=== PATIENT | female | born 1970 | race Hispanic/Latino ===

== ENCOUNTER → 2019-10-08 | Outpatient (CLI) | payer OTHER, MEDICARE ==
[~2019-10-08] MED LIST: ACET-2743 PO; BUPR150SR PO; IBUP-2077 PO; LITH450T16 PO
== END | disposition home or self-care (01) ==
LOC: RAH 07:38
PROVIDERS: ATTEND Family Medicine
DX: Z12.31 Encounter for screening mammogram for malignant neoplasm of breast (principal)
CPT/HCPCS: 77067

== ENCOUNTER 2025-02-25 12:36 | Emergency (ER) | payer OTHER, MEDICARE ==
[~2025-02-25] VITALS: Ht 160 cm; Wt 92.5 kg
[~2025-02-25 12:36] MED LIST changes: +BUPR-72 PO; -BUPR150SR PO; -LITH450T16 PO; +[UNRECOGNIZED DRUG - CODE] PO
--- NOTE | 2025-02-25 12:46 | ERN ---
ED Note History of Present Illness Stated Complaint: MID BACK PAIN Chief Complaint: Back Pain-No Injury Time Seen by MD: 12:40 Dictation: PATIENT IS A 55-YEAR-OLD FEMALE COMING IN TODAY WITH LUMBOSACRAL PAIN TENDERNESS ONSET FRIDAY. SHE STATES SHE WOULD NOT HAVING ANY FALLS NO LIFTING NO RADICULAR PAIN. NO CHANGE IN BOWEL OR BLADDER FUNCTION NO FEVER NO CHILLS NO NAUSEA VOMITING. SHE STATES SHE WAS GOING TO THE DOCTOR'S OFFICE ON FRIDAY WHEN SHE TRIPPED AND FELL ON HER BUTT. STATES SHE SAW HER PRIMARY CARE DOCTOR WHO GAVE HER NAPROXEN AND TOLD HER SHE WOULD DO AN ULTRASOUND OF HER BACK TO RULE OUT A KIDNEY STONE. PATIENT DENIES ANY PAST BACK SURGERIES INJURIES NO RADICULOPATHY OR SCIATICA. SHE HAS NOT TAKEN ANYTHING PRIOR TO ARRIVAL FOR PAIN. Allergies: Coded Allergies: ziprasidone (Unverified Allergy, Severe, RASH, TONGUE SWELLS, 06/13/15) lamotrigine (Unverified Allergy, Mild, RASH SWELLING, 06/13/15) Home Meds Reported Medications Ibuprofen (Ibuprofen 800 mg Tab) 800 Mg Tab, 800 MG PO AD PRN for PAIN, TAB 06/13/15 Acetaminophen (Tylenol Extra Strength) 500 Mg Tablet, 500 MG PO AD, TAB 06/13/15 Bupropion HCl (Wellbutrin Sr) 150 Mg Srtab, 150 MG PO AM, TAB.SR 06/13/15 [place] Carbonate ([place] Carbonate) 450 Mg Tablet.er, 450 MG PO BID, TAB 06/13/15 Past Medical History RN Note Reviewed/Agreed w/PFSH: Yes Review of System Dictation CONSTITUTIONAL: NEGATIVE EXCEPT FOR HPI HEAD/FACE: NEGATIVE EXCEPT FOR HPI EENT: NEGATIVE EXCEPT FOR HPI RESPIRATORY: NEGATIVE EXCEPT FOR HPI GASTROINTESTINAL/ABDOMINAL: NEGATIVE EXCEPT FOR HPI GENITOURINARY: NEGATIVE EXCEPT FOR HPI MUSCULOSKELETAL: NEGATIVE EXCEPT FOR HPI LUMBOSACRAL PAIN INTEGUMENTARY: NEGATIVE EXCEPT FOR HPI NEUROLOGICAL/PSYCH: NEGATIVE EXCEPT FOR HPI HEMATOLOGIC/LYMPHATIC: NEGATIVE EXCEPT FOR HPI ALL SYSTEMS NEGATIVE, EXCEPT NOTED ABOVE. 13 POINT REVIEW OF SYSTEMS ASSESSED AND ALL NEGATIVE EXCEPT FOR ABOVE. Initial Vital Sign VS Vital Signs Date Time Temp Pulse Resp B/P (MAP) Pulse Ox O2 Delivery O2 Flow Rate FiO2 02/25/25 12:51 96.8 78 19 138/83 99 Room Air 0 02/25/25 13:03 21 Physical Exam Dictation VITAL SIGNS REVIEWED GENERAL APPEARANCE: ALERT, ORIENTED X 3, MODERATE ACUTE DISTRESS, WELL DEVELOPED, NOURISHED. OBESE HEAD AND FACE: NON-TRAUMATIC. EYES: PERRL, PINK CONJUNCTIVAS, EYELID NO TRAUMA, ANTERIOR CHAMBER WITH ARCUS SENILIS. EARS: PINNAS INTACT AND NO SIGNS OF TRAUMA OR ERYTHEMA EAR CANALS CLEAR AND NO DISCHARGE TM NO ERYTHEMA NOSE: NO DISCHARGE, NO BLEEDING. OROPHARYNX: MOUTH NORMAL, TONGUE PINK, PHARYNX CLEAR,NO ERYTHEMA, TONSILS NO EXUDATES, NO ABSCESSES NOTED, MUCOUS MEMBRANE MOIST NECK: SUPPLE, NON-TENDER, NO THYROMEGALY, NO MASSES, NO JVD, NO BRUITS BREAST:DEFERRED CHEST:NO TENDERNESS, NO CREPITUS, NO PARADOXICAL MOVEMENT, NO RETRACTIONS LUNGS:CLEAR, WELL-VENTILATED, SYMMETRIC, NO RALES, NO WHEEZING, NO RHONCHI, NO STRIDOR, GOOD BREATH SOUNDS BILATERALLY HEART: REGULAR RATE, REGULAR RHYTHM, NO MURMUR, NO GALLOPS VASCULAR: NO PERIPHERAL EDEMA, ABDOMEN: SOFT, POSITIVE BOWEL SOUNDS, NONDISTENDED, NO GUARDING, NONTENDER, NO REBOUND, NO MASSES NO HEPATOMEGALY, NO SPLENOMEGALY, NO OLIVEIRA'S SIGN, NO HERNIAS. RECTAL: DEFERRED GENITAL: DEFERRED NEUROLOGICAL: NORMAL SPEECH, MOTOR FUNCTION INTACT, SENSORY FUNCTION INTACT MUSCULOSKELETAL: NECK NONTENDER, FULL RANGE OF MOTION, LEFT LATERAL LUMBOSACRAL TENDERNESS WITH PALPATION NO MIDLINE SPINE PAIN DECREASED RANGE OF MOTION SECONDARY TO PAIN NEGATIVE STRAIGHT LEG RAISE BILATERALLY 10 DEGREE EXTREMITIES: NONTENDER, FULL RANGE OF MOTION SKIN: COLOR PINK, DRY, NO TURGOR, NO RASH, NO LACERATIONS, NO ABRASIONS, NO CONTUSIONS. LYMPHATIC: DEFERRED Results (Laboratory/Radiology) Laboratory/Radiology Laboratory Tests Test 02/25/25 13:22 Urine Color COLORLESS (YELLOW) Urine Appearance CLEAR (CLEAR) Urine pH 6.0 (5.0-8.0) Urine Specific [place] 1.006 (1.001-1.031) Urine Protein NEGATIVE mg/dL (NEGATIVE) Urine Glucose (UA) NEGATIVE mg/dL (NEGATIVE) Urine Ketones NEGATIVE mg/dL (NEGATIVE) Urine Occult Blood NEGATIVE (NEGATIVE) Urine Nitrate NEGATIVE (NEGATIVE) Urine Bilirubin NEGATIVE mg/dL (NEGATIVE) Urine Urobilinogen 0.2 mg/dL (0.2-1.0) Urine Leukocyte Esterase NEGATIVE Sosa/uL 1415/LUMBAR X-RAY NEGATIVE OTHER THAN DJD Labs Reviewed?: Yes ED Course ED Course Orders Procedure Category Date Status Time Urinalysis Profile LAB 02/25/25 Complete 12:44 Cyclobenzaprine Hcl PHA 02/25/25 Complete (Cyclobenzaprine Hcl 13:00 Ketorolac 60mg/2ml PHA 02/25/25 Complete (Toradol 60mg/2ml) 13:00 Lumbar Spine 2-3vws RAD 02/25/25 Taken 12:44 Current Medications Medications (Trade) Dose Ordered Sig/Solange Route PRN Reason Start Time Stop Time Status Last Admin Dose Admin Cyclobenzaprine HCl (Cyclobenzaprine HCl) 10 mg ONCE ONCE PO 02/25/25 13:00 02/25/25 13:01 DC 02/25/25 13:10 Ketorolac Tromethamine (toRADol 60MG/ 2ML) 60 mg ONCE ONCE IM 02/25/25 13:00 02/25/25 13:01 DC 02/25/25 13:11 Vital Signs Date Time Temp Pulse Resp B/P (MAP) Pulse Ox O2 Delivery O2 Flow Rate FiO2 02/25/25 13:03 98.1 75 16 135/82 98 Room Air* 0 21 02/25/25 12:51 96.8 78 19 138/83 99 Room Air 0 1417/PATIENT STATES PAIN IS IMPROVING WITH TREATMENT. WE WILL BE DISCHARGED HOME WITH CYCLOBENZAPRINE AND IBUPROFEN GIVEN INSTRUCTIONS TO FOLLOW UP WITH HER PRIMARY CARE DOCTOR IN THE NEXT 1-2 DAYS. Medical Decision Making MDM MEDICAL DISCHARGE MAKING BASED ON URINALYSIS TO RULE OUT GENITOURINARY ETIOLOGY FOR PAIN NO HEMATOMA NO INFECTION LUMBOSACRAL X-RAY DEMONSTRATES DJD PATIENT DISCHARGED HOME WITH A ACUTE LUMBOSACRAL STRAIN AND DJD GIVEN IBUPROFEN AND FLEXERIL TOLD SEE HER PRIMARY CARE DOCTOR ON FRIDAY DX & DISP Disposition: Discharge Departure Impression: Primary Impression: Acute lumbosacral myofascial strain Additional Impression: DJD (degenerative joint disease), lumbar Condition: Stable Scripts Cyclobenzaprine HCl (Cyclobenzaprine HCl) 10 Mg Tablet 1 TAB PO TID for muscle spasms for 10 Days, #30 TAB 0 Refills Prov: LIN DUNCAN [facility] 02/25/25 Ibuprofen (Ibuprofen 800 mg Tab) 800 Mg Tab 800 MG PO Q8H PRN for fever or pain, #30 TAB 0 Refills Prov: LIN DUNCAN NP 02/25/25 Additional Instructions: FOLLOW-UP WITH PRIMARY CARE PROVIDER IN 1 TO 2 DAYS. TAKE MEDICATIONS DIRECTED HERE IN THE EMERGENCY ROOM. OKAY TO CONTINUE HOME MEDICATIONS UNLESS OTHERWISE DISCUSSED DURING YOUR VISIT IN THE EMERGENCY ROOM TODAY. RETURN TO YOUR NEAREST EMERGENCY ROOM IF SYMPTOMS WORSEN OR IF THERE IS NO IMPROVEMENT. CALL 911 IF YOU NEED IMMEDIATE ASSISTANCE. TAKE TYLENOL OR MOTRIN [id number] NEEDED AND IF NO CONTRAINDICATIONS ARE PRESENT. INCREASE ORAL HYDRATION. A WOUND CULTURE OR URINE CULTURE WAS ORDERED HERE IN THE EMERGENCY ROOM DEPARTMENT PLEASE FOLLOW-UP WITH PRIMARY CARE PROVIDER AND ADVISE THEM TO GET REPEAT PORTS FROM OUR FACILITY. IF YOU HAD ANY NANCY WRAP/SPLINTS THAT WERE APPLIED HERE, PLEASE DO NOT REMOVE THEM UNTIL YOU SEE YOUR PRIMARY CARE OR SPECIALTY. WARM COMPRESSES TO PAIN THREE TO 4 TIMES A DAY. TAKE IBUPROFEN AND FLEXERIL EVERY8 HOURS FOR THE NEXT THREE DAYS. NO LIFTING GREATER THAN 10 LB UNTIL CLEARED BY YOUR DOCTOR ON FRIDAY. Referrals: OLIVE MANZANO M.D. (PCP) Time of Disposition: 14:17 I have reviewed the case, and I agree with, Diagnosis and Plan LIN DUNCAN NP Feb 25, 2025 12:46
[2025-02-25] MEDS: CYCLOBENZAPRINE HCL 10 MG TABLET PO ONE (13:10)
[2025-02-25 13:39] LABS: APPEARANCE,URINE CLEAR (CLEAR); GLUCOSE, URINE (UA) NEGATIVE (NEGATIVE); LEUKOCYTE ESTERASE ,URINE NEGATIVE Leu/uL (NEGATIVE); NITRATE,URINE NEGATIVE (NEGATIVE); OCCULT BLOOD,URINE NEGATIVE (NEGATIVE)
[2025-02-25 13:44] LABS: ADD UA MICROSCOPIC NO
[2025-02-25] MEDS ORDERED: CYCL-309 PO (14:18)
[2025-02-25] MEDS ORDERED: IBUP-2077 PO (14:18)
[2025-02-25 14:40] VITALS: BP 135/80; PULSE 72; RESP 16; TEMP 98.1; O2SAT 98
== END 2025-02-25 14:46 | disposition home or self-care (01) ==
LOC: EDH 12:36
DX: S39.012A Strain of muscle, fascia and tendon of lower back, initial encounter (principal); M47.816 Spondylosis without myelopathy or radiculopathy, lumbar region; Z79.899 Other long term (current) drug therapy; Z88.8 Allergy status to other drugs, medicaments and biological substances; X58.XXXA Exposure to other specified factors, initial encounter; Y93.89 Activity, other specified; Y92.89 Other specified places as the place of occurrence of the external cause; Y99.8 Other external cause status
CPT/HCPCS: 99284; 81003; 72100; 96372; J1885